=== PATIENT | male | born 1975 | race Two or more races ===

== ENCOUNTER → 2017-11-29 12:28 | Outpatient (CLI) | payer OTHER ==
[~2017-11-29] VITALS: Ht 152.4 cm; Wt 93.9 kg
[~2017-11-29 12:28] MED LIST: VOLTAREM 50 MG PO
== END | disposition home or self-care (01) ==
LOC: PPHC 12:28
DX: M25.542 Pain in joints of left hand (principal); M25.541 Pain in joints of right hand

== ENCOUNTER 2017-11-30 14:42 | Outpatient (CLI) | payer OTHER | END 2017-11-30 15:10 | disposition home or self-care (01) | LOC: RAD 14:42 | DX: M25.519 Pain in unspecified shoulder (principal); M25.572 Pain in left ankle and joints of left foot ==

== ENCOUNTER → 2017-11-30 | Outpatient (CLI) | payer OTHER | END | disposition home or self-care (01) | LOC: LAB 14:16 | DX: M25.519 Pain in unspecified shoulder (principal) ==

== ENCOUNTER → 2017-12-03 | Outpatient (CLI) | payer OTHER ==
[~2017-12-03] VITALS: Ht 152.4 cm; Wt 93.4 kg
== END | disposition home or self-care (01) ==
LOC: PPHC 09:59
DX: M25.572 Pain in left ankle and joints of left foot (principal); M77.8 Other enthesopathies, not elsewhere classified

== ENCOUNTER → 2018-01-04 | Outpatient (CLI) | payer OTHER ==
[~2018-01-04] VITALS: Ht 152.4 cm; Wt 93.9 kg
== END | disposition home or self-care (01) ==
LOC: PPHC 12:00
DX: Z01.89 Encounter for other specified special examinations (principal)

== ENCOUNTER → 2019-09-02 09:09 | Outpatient (CLI) | payer OTHER | END | disposition home or self-care (01) | LOC: LAB 09:09 | DX: N40.0 Benign prostatic hyperplasia without lower urinary tract symptoms (principal); E78.49 Other hyperlipidemia; Z00.00 Encounter for general adult medical examination without abnormal findings; E55.9 Vitamin D deficiency, unspecified; R42 Dizziness and giddiness ==

== ENCOUNTER 2019-09-02 09:35 | Outpatient (CLI) | payer OTHER | END 2019-09-02 09:37 | disposition home or self-care (01) | LOC: RAD 09:35 | DX: M25.511 Pain in right shoulder (principal) ==

== ENCOUNTER 2020-01-20 11:37 | Emergency (ER) | payer OTHER ==
[~2020-01-20] VITALS: Ht 180.3 cm; Wt 99.8 kg
== END 2020-01-20 17:00 | disposition home or self-care (01) ==
LOC: ER 11:37
DX: J11.1 Influenza due to unidentified influenza virus with other respiratory manifestations (principal)

== ENCOUNTER 2021-04-11 06:05 | Emergency (ER) | payer OTHER ==
[~2021-04-11] VITALS: Ht 180.3 cm; Wt 102.1 kg
[2021-04-11] MEDS ORDERED: KETO10TA2 PO (10:40)
[2021-04-11] MEDS ORDERED: ZANAFLEX4 M1 PO (10:40)
== END 2021-04-11 11:00 | disposition home or self-care (01) ==
LOC: ER 06:05
DX: M25.512 Pain in left shoulder (principal)

== ENCOUNTER → 2021-12-15 10:00 | Outpatient (CLI) | payer OTHER ==
[~2021-12-15 10:00] MED LIST changes: +KETO10TA2 PO; +ZANAFLEX4 M1 PO
== END | disposition home or self-care (01) ==
LOC: PPH VACUNA 10:00
PROVIDERS: ATTEND Emergency Medicine Pediatric Emergency Medicine
DX: Z23 Encounter for immunization (principal)

== ENCOUNTER → 2022-02-09 06:19 | Outpatient (CLI) | payer OTHER | END | disposition home or self-care (01) | LOC: LAB 06:19 | DX: D50.9 Iron deficiency anemia, unspecified (principal); M19.90 Unspecified osteoarthritis, unspecified site; N39.0 Urinary tract infection, site not specified; E11.9 Type 2 diabetes mellitus without complications; E78.5 Hyperlipidemia, unspecified; E03.9 Hypothyroidism, unspecified; K57.30 Diverticulosis of large intestine without perforation or abscess without bleeding; M85.9 Disorder of bone density and structure, unspecified; N41.9 Inflammatory disease of prostate, unspecified; M54.2 Cervicalgia; M54.50 Low back pain, unspecified; M25.512 Pain in left shoulder ==

== ENCOUNTER 2022-03-12 06:09 | Outpatient (CLI) | payer OTHER | END 2022-03-12 06:39 | disposition home or self-care (01) | LOC: LAB 06:09 | DX: M06.4 Inflammatory polyarthropathy (principal) ==

== ENCOUNTER 2022-04-20 06:52 | Outpatient (CLI) | payer OTHER | END 2022-04-20 06:57 | disposition home or self-care (01) | LOC: LAB 06:52 | PROVIDERS: ATTEND Internal Medicine Gastroenterology | DX: D50.0 Iron deficiency anemia secondary to blood loss (chronic) (principal); D68.9 Coagulation defect, unspecified ==

== ENCOUNTER → 2022-06-10 06:34 | Outpatient (CLI) | payer OTHER | END | disposition home or self-care (01) | LOC: LAB 06:34 | DX: R73.09 Other abnormal glucose (principal); E78.2 Mixed hyperlipidemia; N39.0 Urinary tract infection, site not specified; N40.0 Benign prostatic hyperplasia without lower urinary tract symptoms ==